=== PATIENT | female | born 1975 | race Caucasian/White ===

== ENCOUNTER 2017-03-20 19:01 | Emergency (ER) | payer OTHER ==
[2017-03-20 21:15] LABS: microscopic required? NO
[2017-03-20 21:27] LABS: UA SPECIFIC GRAVITY 1.025 (1.005-1.035); urine erythrocyte NEGATIVE (NEGATIVE)
[2017-03-20 22:42] VITALS: BP 117/80
== END 2017-03-20 22:42 | disposition home or self-care (01) ==
LOC: ED 19:01
PROVIDERS: Emergency Medicine
DX: S39.012A Strain of muscle, fascia and tendon of lower back, initial encounter (principal); X58.XXXA Exposure to other specified factors, initial encounter; Y93.89 Activity, other specified; Y92.89 Other specified places as the place of occurrence of the external cause; Y99.8 Other external cause status
CPT/HCPCS: J1885; Q0162

== ENCOUNTER 2017-04-13 13:34 | Emergency (ER) | payer OTHER ==
[~2017-04-13] VITALS: Ht 165.1 cm; Wt 68.5 kg
[2017-04-13 15:17] VITALS: BP 127/84
== END 2017-04-13 15:18 | disposition home or self-care (01) ==
LOC: ED 13:34
DX: T78.1XXA Other adverse food reactions, not elsewhere classified, initial encounter (principal); R20.8 Other disturbances of skin sensation; X58.XXXA Exposure to other specified factors, initial encounter

== ENCOUNTER 2017-05-31 23:41 | Emergency (ER) | payer OTHER ==
[2017-06-01 04:31] VITALS: BP 124/81
== END 2017-06-01 04:31 | disposition home or self-care (01) ==
LOC: ED 23:41
DX: S09.90XA Unspecified injury of head, initial encounter (principal); H10.9 Unspecified conjunctivitis; Z33.1 Pregnant state, incidental; W22.8XXA Striking against or struck by other objects, initial encounter; Y93.89 Activity, other specified; Y92.89 Other specified places as the place of occurrence of the external cause; Y99.8 Other external cause status
CPT/HCPCS: J1885

== ENCOUNTER 2019-02-21 21:37 | Emergency (ER) | payer OTHER ==
[~2019-02-21] VITALS: Ht 165.1 cm; Wt 71.2 kg
[2019-02-21 21:43] VITALS: Ht 165.1 cm; Wt 71.2 kg
[2019-02-21 23:06] VITALS: BP 116/77
== END 2019-02-21 23:06 | disposition home or self-care (01) ==
LOC: ED 21:37
DX: R51 Headache (principal); R11.0 Nausea; M54.2 Cervicalgia; H92.02 Otalgia, left ear; R50.9 Fever, unspecified
CPT/HCPCS: J1885

== ENCOUNTER 2019-06-20 14:43 | Emergency (ER) | payer OTHER ==
[~2019-06-20] VITALS: Ht 162.6 cm; Wt 70.8 kg
[2019-06-20 14:58] VITALS: Ht 162.6 cm; Wt 70.8 kg
[2019-06-20 15:27] LABS: BASOPHIL % 0.3 % (0-2); PLATELET COUNT 286 x10^3mcL (130-400); RED CELL DISTRIBUTION WIDTH 12.3 % (11.5-14.5)
[2019-06-20 15:41] LABS: ALBUMIN 4.2 g/dL (3.4-5.0); ALKALINE PHOSPHATASE 64 U/L (46-116); ALT/SGPT 16 U/L (14-59); AST/SGOT 10 U/L (15-37); BILIRUBIN TOTAL 0.68 mg/dL (0.20-1.00); CALCIUM 9.1 mg/dL (8.5-10.1); CHLORIDE SERUM 106 mmol/L (98-107); CREATININE SERUM 0.9 mg/dL (0.6-1.0); GFR1 > 60 mL/min; GLUCOSE SERUM 102 mg/dL (74-106); POTASSIUM SERUM 3.8 mmol/L (3.5-5.1); SODIUM SERUM 143 mmol/L (136-145); TOTAL PROTEIN, SERUM 7.6 g/dL (6.4-8.2)
[2019-06-20 18:04] VITALS: BP 104/76
== END 2019-06-20 18:50 | disposition home or self-care (01) ==
LOC: ED 14:43
DX: R20.2 Paresthesia of skin (principal); F41.9 Anxiety disorder, unspecified; R07.89 Other chest pain; R51 Headache
CPT/HCPCS: 36415

== ENCOUNTER 2019-09-01 14:20 | Emergency (ER) | payer OTHER ==
[~2019-09-01] VITALS: Ht 162.6 cm; Wt 73.0 kg
[2019-09-01 14:24] VITALS: BP 119/87; Ht 162.6 cm; Wt 73.0 kg
== END 2019-09-01 15:27 | disposition left against medical advice (07) ==
LOC: ED 14:20
DX: Z53.21 Procedure and treatment not carried out due to patient leaving prior to being seen by health care provider (principal)